=== PATIENT | female | born 1975 | race Hispanic/Latino ===

== ENCOUNTER 2020-06-05 20:27 | Emergency (ER) | payer SELFPAY ==
[~2020-06-05] VITALS: Ht 167.6 cm; Wt 86.2 kg
[2020-06-05] MEDS ORDERED: KETOROLAC TROMETHAMINE 30 MG/ML VIAL IV STA (20:54)
[2020-06-05] MEDS ORDERED: DONNATAL/LIDOCAINE/MAALOX 30 ML SUSP PO ONE (21:00)
[2020-06-05] MEDS ORDERED: KETOROLAC TROMETHAMINE 30 MG/ML VIAL ONE (21:21)
[2020-06-05] MEDS ORDERED: LIDOCAINE VISC 2% SOLN 15 ML UDC ONE (21:21)
[2020-06-05] MEDS ORDERED: MAGNESIUM/ALUMINUM/SIMETHICONE 30 ML UDC ONE (21:21)
[2020-06-05] MEDS ORDERED: BELLADONNA ALK/PHENOBARBITAL 5 ML UDC ONE (21:21)
--- NOTE | 2020-06-05 23:29 | Emergency Department Note ---
History of Present Illnes History of Present Illness Chief Complaint: Abdominal Complaints History of Present Illness This is a 44 year old female hief Complaint Comment PT C/O EPIGASTRIC PAIN THAT HAS BEEN PRESENT SINCE 4 PM TODAY (5 HOURS) VARIES IN SEVERITY, DIDNT EAT LUNCH TODAY BUT HAD SOME VIATNAMESE FOOD FOR DINNER AND IMMEDIATELY AFTER EATING THE FOOD, THE PAIN INTENSIFIED, DENIES VOMITTING BUT HAS SOME NAUSEA, STATES IT FEELS LIKE THE FOOD IS STUCK IN EPIGASTRIC AREA, HAS A H/O GERD AND FROGOT TO TAKE HER OMEPRAZOLE TODAY UNTIL MUCH LATER IN DAY, THE PAIN FEELS DIFFERENT THAN ANY OTHER TIMES SHE HAS HAD REFLUX . Historian: Patient Arrival Mode: Car Onset (how long ago): day(s) (2) Location: epigastric Quality: dull Radiation: Denies non-radiation, Denies back, Denies neck, Denies extremity, De nies abdomen, Denies periumbilical, Denies flank, Denies proximal, Denies distal, Denies other Severity: moderate Onset quality: gradual Duration (how long): day(s) (2) Timing of current episode: constant Progression: waxing and waning Chronicity: new Context: Denies recent illness, Denies recent surgery, Denies recent immobilization, Denies recent travel, Denies trauma/injury, Denies new medications, Denies hx of DVT/PE, Denies non-compliance w/ medications, Denies other Relieving factors: none Exacerbating factors: none Associated symptoms: Denies denies other symptoms, Denies confusion, Denies chest pain, Denies cough, Denies diaphoresis, Denies fever/chills, Denies headaches, Denies loss of appetite, Denies malaise, Denies nausea/vomiting, Denies rash, Denies seizure, Denies shortness of breath, Denies syncope, Denies weakness, Denies other Treatments prior to arrival: none Past Medical/Family History Physician Review I have reviewed the patient's past medical and family history. Any updates have been documented here. Past Medical History Recent Fever: No Clinical Suspicion of Infectio: No New/Unexplained Change in Ment: No Social History Smoking Cessation: Never Smoker Counseling Performed: No Alcohol Use: Social Any Illegal Drug Use: No Other Any Pre-Existing Lines (PICC,: No Review of Systems Review of Systems Constitutional: Reports no symptoms EENTM: Reports no symptoms Cardiovascular: Reports no symptoms Respiratory: Reports no symptoms Gastrointestinal: Reports as per HPI Genitourinary: Reports no symptoms Musculoskeletal: Reports no symptoms Integumentary: Reports no symptoms Neurological: Reports no symptoms Psychological: Reports no symptoms Endocrine: Reports no symptoms Hematological/Lymphatic: Reports no symptoms Physical Exam Related Data Allergies: Coded Allergies: No Known Allergies (Unverified , 06/05/20) Triage Vital Signs Vital Signs Date Time Temp Pulse Resp B/P (MAP) Pulse Ox O2 Delivery O2 Flow Rate FiO2 06/05/20 20:48 98.8 94 20 159/86 98 Room Air Vital signs reviewed: Yes Physical Exam CONSTITUTIONAL Constitutional: Present well-developed, Present well-nourished HENT HENT: Present normocephalic, Present atraumatic, Present oropharynx clear/moist, Present nose normal HENT L/R: Present left ext ear normal, Present right ext ear normal EYES Eyes: Reports PERRL, Reports conjunctivae normal NECK Neck: Present ROM normal PULMONARY Pulmonary: Present effort normal, Present breath sounds normal CARDIOVASCULAR Cardiovascular: Present regular rhythm, Present heart sounds normal, Present capillary refill normal, Present normal rate GASTROINTESTINAL Abdominal: Present soft, Present bowel sounds normal, Present tender (epigastric) GENITOURINARY Genitourinary: Present exam deferred SKIN Skin: Present warm, Present dry MUSCULOSKELETAL Musculoskeletal: Present ROM normal NEUROLOGICAL Neurological: Present alert, Present oriented x 3, Present no gross motor or s ensory deficits PSYCHOLOGICAL Psychological: Present mood/affect normal, Present judgement normal Results Laboratory Lab results reviewed: Yes Imaging Imaging results reviewed: Yes Assessment & Plan Medical Decision Making MDM PUD GASTRITIS Reassessment Reassessment time: 23:28 Reassessment RESOLVES Assessment & Plan Final Impression: (1) Abdominal pain, acute, epigastric (2) Gastritis Depart Disposition: HOME, SELF-CARE Last Vital Signs Date Time Temp Pulse Resp B/P (MAP) Pulse Ox O2 Delivery O2 Flow Rate FiO2 06/05/20 20:48 98.8 94 20 159/86 98 Room Air Medications in the ED Belladonna Alkaloids/ Phenobarbital 10 ml ONCE ONCE PO Last administered on 06/05/20at 21:21; Admin Dose 10 ML; Start 06/05/20 at 21:00; Stop 06/05/20 at 21:12; Status DC Ketorolac Tromethamine 15 mg ONCE STAT IV Last administered on 06/05/20at 21:21; Admin Dose 15 MG; Start 06/05/20 at 20:54; Stop 06/05/20 at 21:12; Status DC Lidocaine HCl 15 ml STK-MED ONCE .ROUTE ; Start 06/05/20 at 21:21; Stop 06/05/20 at 21:15; Status DC Belladonna Alkaloids/ Phenobarbital 10 ml STK-MED ONCE .ROUTE ; Start 06/05/20 at 21:21; Stop 06/05/20 at 21:15; Status DC Ketorolac Tromethamine 30 mg STK-MED ONCE .ROUTE ; Start 06/05/20 at 21:21; Stop 06/05/20 at 21:15; Status DC Magnesium Aluminum Silicate 30 ml STK-MED ONCE .ROUTE ; Start 06/05/20 at 21:21; Stop 06/05/20 at 21:15; Status DC JOHN MATUTE MD Jun 05, 2020 23:29
[2020-06-05] MEDS ORDERED: OMEPRAZOLE40 MG PO (23:31)
[2020-06-05] MEDS ORDERED: ZOFRAN4 MG SL (23:31)
--- NOTE | 2020-06-05 23:53 | Diagnostic Imaging Report ---
EXAMINATION: CT of the abdomen and pelvis without contrast. TECHNIQUE: Spiral CT images of the abdomen and pelvis were performed from the lung bases to the lesser trochanters. No intravenous contrast was given per renal stone protocol. Coronal and sagittal reformatted images were obtained. COMPARISON: None. CLINICAL HISTORY:Upper abdominal pain, suspect stone DISCUSSION: ABSENCE OF INTRAVENOUS CONTRAST DECREASES SENSITIVITY FOR DETECTION OF FOCAL LESIONS AND VASCULAR PATHOLOGY. ABDOMEN/PELVIS: Please note exam was made available for interpretation at 2336 hours LOWER THORAX: Linear subsegmental atelectasis in the lingula. HEPATOBILIARY: Diffusely decreased attenuation of the hepatic parenchyma consistent with steatosis. 6.3 x 5.1 cm fluid density lesion in hepatic segment V (series 2, image 26). No other focal hepatic lesions. No intra or extrahepatic biliary ductal dilation. GALLBLADDER: 1.9 cm peripherally calcified stone in the gallbladder neck. Mild gallbladder wall thickening, measuring 0.4 cm. No pericholecystic fluid or surrounding stranding. SPLEEN: No splenomegaly. PANCREAS: No focal masses or ductal dilatation. ADRENALS: 1.6 cm soft tissue nodule in the right adrenal gland (series 2, image 28). Left adrenal gland is unremarkable. KIDNEYS/URETERS: No renal or ureteral calculi, hydronephrosis or obstruction. No contour abnormalities or perinephric stranding. PELVIC ORGANS/BLADDER: Bladder is unremarkable. Uterus is unremarkable. No adnexal masses. PERITONEUM/RETROPERITONEUM: No free air or fluid. LYMPH NODES: No intra-abdominal,retroperitoneal, pelvic or inguinal lymphadenopathy. VESSELS: Unremarkable for noncontrast exam. GI TRACT: No bowel dilation or evidence of obstruction. No pericolonic inflammatory changes. Appendix is identified and normal in caliber. A few scattered diverticula are noted in the descending and sigmoid colon, without diverticulitis. Oval-shaped intraluminal hyperdensity in the mid to distal ileum likely represents undigested pill material (coronal image 32 and series 2, image 53). BONES AND SOFT TISSUES: No aggressive lytic or suspicious focal sclerotic lesions. Mildly degenerated disc at L5-S1. Mild canal stenosis L5-S1. Soft tissues are grossly unremarkable. IMPRESSION: 1. No renal, ureteral or bladder calculi, hydronephrosis or obstruction. 2. Cholelithiasis with mild gallbladder wall thickening. No pericholecystic fluid or surrounding fat stranding. Consider right upper quadrant ultrasound for further evaluation. 3. Diffuse hepatic steatosis. 6.3 cm simple appearing cyst in hepatic segment V. 4. Indeterminate 1.6 cm nodule in the right adrenal gland. Recommend CT abdomen with adrenal mass protocol for further evaluation, on a nonemergent basis. Signed by: Dr. Molina De La Cruz M.D. on 06/05/2020 11:50 PM
== END 2020-06-05 23:52 | disposition home or self-care (01) ==
LOC: FSED 20:55
DX: R10.13 Epigastric pain (principal); K29.70 Gastritis, unspecified, without bleeding
CPT/HCPCS: 74176; 80053; 85025; 99284; J1885